=== PATIENT | male | born 1955 | race Caucasian/White ===

== ENCOUNTER 2024-05-04 20:36 | Emergency (ER) | payer OTHER ==
[~2024-05-04] VITALS: Ht 180.3 cm; Wt 59.0 kg
[2024-05-04 20:53] VITALS: BP_SYST 113; PULSE 67; RESP 18; TEMP 98.3; O2SAT 95
[2024-05-04] MEDS ORDERED: BACITRACIN 1 GM OINT TP ONE (21:34)
[2024-05-04 23:23] VITALS: BP_SYST 125; PULSE 58; RESP 18; TEMP 97.9; O2SAT 95
[2024-05-04 23:57] LABS: BILIRUBIN,URINE NEGATIVE (NEGATIVE); CLARITY/URINE CLEAR (CLEAR); COLOR,URINE YELLOW (YELLOW); GLUCOSE,URINE NEGATIVE (NEGATIVE); KETONES,URINE 1+ (NEGATIVE); LEUKOCYTE ESTERASE ,URINE NEGATIVE (NEGATIVE); NITRITE, URINE NEGATIVE (NEGATIVE); PROTEIN URINE NEGATIVE (NEGATIVE); UROBILINOGEN,URINE 0.2 (0.2-1.0)
[2024-05-05 00:11] LABS: BACTERIA,URINE None Seen /HPF (None Seen); BLOOD, URINE TRACE (NEGATIVE); WBC,URINE 0-3 /HPF (0-3)
== END 2024-05-04 23:23 | disposition home or self-care (01) ==
LOC: SED 20:36
DX: S09.90XA Unspecified injury of head, initial encounter (principal); F10.90 Alcohol use, unspecified, uncomplicated; W01.0XXA Fall on same level from slipping, tripping and stumbling without subsequent striking against object, initial encounter; Y93.89 Activity, other specified; Y92.89 Other specified places as the place of occurrence of the external cause; Y99.8 Other external cause status; Y90.9 Presence of alcohol in blood, level not specified
CPT/HCPCS: 70450-TC; 81000; 81001; 81015; 99284